=== PATIENT | female | born 1970 | race Caucasian/White ===

== ENCOUNTER 2019-01-17 07:30 | Day surgery (SDC) | payer MEDICARE, OTHER ==
[2019-01-15 12:40] VITALS: BMI 46.2
[~2019-01-17 07:30] MED LIST: DEXAMETHASONE SOD PHOSPHATE 10 MG/ML 1 ML VIAL IV ONE; DEXAMETHASONE SOD PHOSPHATE 4 MG/ML 1 ML VIAL IV ONE; FAMOTIDINE 20 MG/2 ML VIAL IV ONE; HYDROmorphone 0.5 MG/0.5 ML SYRINGE IVP PRN; LACTATED RINGERS 1,000 ML IV SCH; MIDAZOLAM (PF) 2 MG/2 ML VIAL IV PRN; ONDANSETRON 4 MG/2 ML VIAL IVP ONE; SCOPOLAMINE 1.5MG/72HR PATCH TRANSDERM ONE
[2019-01-17] MEDS: OXYMETAZOLINE 0.05% NASL SPRAY 1 SPRAY BOTTLE NASAL ONE ×5 (08:21→08:46)
[2019-01-17] MEDS ORDERED: LIDOCAINE 1% 20 ML VIAL (10MG/ML) FOR IV START INTRADERMA ONE (08:28)
[2019-01-17] MEDS ORDERED: LIDOCAINE 1%-EPI 1:100,000 20 ML VIAL SUBMUCOSAL ONE ×2 (08:53→10:05)
[2019-01-17] MEDS ORDERED: BUPIVACAIN-EPI 0.5%-1:200,000 30 ML VIAL SQ ONE ×2 (08:53→10:05)
[2019-01-17] MEDS ORDERED: BACITRACIN 500 UNIT/GM OINT 28.4 GM TUBE TOPICAL ONE (08:54)
[2019-01-17] MEDS ORDERED: FLUORESCEIN STRIPS 1 MG STRIP MISCELLANE ONE ×2 (08:54→10:05)
[2019-01-17] MEDS ORDERED: NEOSTIGMINE 1 MG/ML 10 ML VIAL ONE (08:54)
[2019-01-17] MEDS ORDERED: ePHEDrine SULFATE/0.9% NACL/PF 50 MG/5 ML SYRINGE IV ONE (08:54)
[2019-01-17] MEDS ORDERED: fentaNYL (PF) 50 MCG/ML 2 ML AMP ONE (08:54)
[2019-01-17] MEDS ORDERED: GLYCOPYRROLATE 0.2 MG/ML 2 ML VIAL ONE (08:54)
[2019-01-17] MEDS ORDERED: EPINEPHrine 1 MG/ML (MDV) 30 ML VIAL TOPICAL ONE ×2 (08:54→10:05)
[2019-01-17] MEDS ORDERED: MIDAZOLAM 2 MG/2 ML VIAL ONE (08:54)
[2019-01-17] MEDS ORDERED: ROCURONIUM BROMIDE 10 MG/ML 10 ML VIAL IV ONE (08:54)
[2019-01-17] MEDS ORDERED: PROPOFOL 10 MG/ML 20 ML VIAL IV ONE (08:54)
[2019-01-17] MEDS ORDERED: DEXAMETHASONE SOD PHOS (MDV) 100 MG/10 ML VIAL ONE (08:54)
[2019-01-17] MEDS ORDERED: LIDOCAINE 1% INJ 10MG/ML (20 ML MDV) ONE (08:54)
[2019-01-17] MEDS: CLINDAMYCIN 600 MG in DEXTROSE 5% IN WATER 50 ML IVPB ONE ×4 (08:59→09:00)
[2019-01-17 10:42] VITALS: RESP 16; TEMP 97
--- NOTE | 2019-01-17 11:15 | P.OP ---
Date of Procedure: 01/17/19 Preoperative Diagnosis: Left Elizabeth-antral fistula Left Nasal polyposis Left Frontal, Maxillary Ethmoid, sphenoid sinusitis right Maxillary sinusitis Deviated nasal septum Postoperative Diagnosis: same Procedure(s) Performed: Closure of left upper elizabeth-antral fistula with buccal flap Functional endoscopic sinus surgery with polypectomy with insertion of propel Septoplasty Anesthesia: [place] Surgeon: Jonathan Kelly Estimated Blood Loss (ml): 10 Pathology: other (sinonasal) Condition: stable Disposition: PACU Indications for Procedure: This patient presented with chronic sinus infections and 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 Patient has failed medical therapy. CAT scan reveals significant sinus disease. Patient is motivated for surgical correction Operative Findings: Massive sinus disease polyposis noted with a deviated nasal septum seen to the right because of the polyp shifting the septum. Left oral antral fistula was closed with good results. Description of Procedure: This patient was taken to the operative room and placed in the supine position. A general inhalation anesthetic was administered to the patient by mask and subsequently intubated with a cuffed endotracheal tube by the department of anesthesia with a functioning IV line in place. Patient was monitored throughout the entire case by the department of anesthesia. A bite block was placed in the mouth was opened. The left upper or antral fistula at the location of tooth #14 was identified. This area was injected with lidocaine 1% with epinephrine 1 100,000. A circular incision was made surrounding the oroantral fistula and the mucosa was involuted upon itself. We then developed a buccal flap and mobilize the buccal flap and rotated the buccal flap into position closing the hole. We closed the flap with the use of a 4 rapid Vicryl and 50 rapid Vicryl. Excellent results were obtained. The whole was closed tightly. Attention was then paid to the nose where the nose was injected in the usual fashion utilizing lidocaine 1% with epinephrine 1 100,000. With use of a 0 endoscope we entered the nose bilaterally we open the right maxillary sinus with use of a [place] and a backbiting forceps. After the maxillary sinus was opened on the right entered the maxillary sinus and we remove diseased tissue from the maxillary sinus. After the right maxillary sinus was opened we straighten the septum with use of a 15 blade incision and elevation of the mucoperichondrial made some crosshatching incisions and mobilize the septum and placed back in the midline. We closed the incision with a 4 rapid Vicryl in a quilting stitch was used to reapproximate the septal flaps. Attention was then paid with use of a 0 Noriega anette endoscope and the left nasal cavity was evaluated. A large polyp was removed with a microdebrider with a 0 Noriega anette endoscopes. We continued our dissection into the maxillary sinus on the left and open up the left maxillary sinus widely. After the left maxillary sinus was opened widely we entered the maxillary sinus and we remove diseased tissue from the maxillary sinus. We then entered the ethmoid sinuses and removed all ethmoid septations on the left side. We remove diseased tissue and a complete total ethmoidectomy was performed I going to the posterior ethmoid air cells. Again we removed all ethmoid septations. We then utilized to ballooned open up the frontal sinus to gain access and confirmation of location. We ballooned open the left frontal sinus with an entellus balloon and then entered the frontal sinus on the left and we remove diseased tissue. After the left frontal sinus was opened to was explored and diseased tissue was removed we then entered the sphenoid sinus and did a sphenoid sinusotomy on the left entering the sphenoid sinus removing diseased tissue from the sphenoid sinus. After the left-sided sinuses were all open all polyps material was removed and confirming that the right maxillary sinus was opened we then inserted propel on the left with xerogel. The patient tolerated this well and a follow-up is scheduled for 1 week. There is no packing and no splints placed.
[2019-01-17 11:35] VITALS: BP 105/69; PULSE 77
== END 2019-01-17 12:45 | disposition home or self-care (01) ==
LOC: OR 07:30
PROVIDERS: ATTEND Otolaryngology
DX: J32.0 Chronic maxillary sinusitis (principal); J34.2 Deviated nasal septum; J32.8 Other chronic sinusitis; J33.8 Other polyp of sinus; K21.9 Gastro-esophageal reflux disease without esophagitis; J45.909 Unspecified asthma, uncomplicated; F17.210 Nicotine dependence, cigarettes, uncomplicated; E78.00 Pure hypercholesterolemia, unspecified; G35 Multiple sclerosis; G43.909 Migraine, unspecified, not intractable, without status migrainosus; E66.9 Obesity, unspecified; Z68.42 Body mass index [BMI] 45.0-49.9, adult; Z97.5 Presence of (intrauterine) contraceptive device; Z79.891 Long term (current) use of opiate analgesic; Z79.899 Other long term (current) drug therapy; Z88.1 Allergy status to other antibiotic agents; Z88.0 Allergy status to penicillin; Z88.2 Allergy status to sulfonamides; Z88.8 Allergy status to other drugs, medicaments and biological substances; Z91.048 Other nonmedicinal substance allergy status
CPT/HCPCS: 30580; 30520; 31267; 31253; 31259; 81025; 88305; 88331; 84703; C2625; C1726; J0171; J2250; J1100 ×2; J2710; J2405; J2001; J3010; J2704